=== PATIENT | female | born 1955 | race Caucasian/White ===

== ENCOUNTER 2021-03-17 06:46 | Inpatient (IN) | payer MEDICARE ==
[2021-03-10 11:58] LABS: BASOPHILS % (AUTO) 0.3 % (0-1); EOSINOPHILS # (AUTO) 0.1 X10'3 (0-0.9); EOSINOPHILS % (AUTO) 1.4 % (0-6); LYMPHOCYTES # (AUTO) 1.6 X10'3 (1.1-4.8); MEAN CORPUSCULAR HEMOGLOBIN 31.7 PG (27.0-31.0); MEAN CORPUSCULAR VOLUME 93.3 FL (78-98); MEAN PLATELET VOLUME 7.9 FL (7.4-10.4); MONOCYTES # (AUTO) 0.4 X10'3 (0-0.9); MONOCYTES % (AUTO) 7.9 % (2-12); NEUTROPHILS # (AUTO) 2.6 X10'3 (1.8-7.7); NEUTROPHILS % (AUTO) 56.4 % (42-75); PRE OP HEMATOCRIT 39.9 % (35.0-45.0); PRE OP HEMOGLOBIN 13.5 g/dL (12.0-16.0); PRE OP PLATELET COUNT 263 X10'3 (140-440); RED BLOOD COUNT 4.28 X10'6 (4.20-5.60); RED CELL DISTRIBUTION WIDTH 13.1 % (11.5-14.5)
[2021-03-10 12:12] LABS: ALBUMIN 3.6 G/DL (3.4-5.0); ALBUMIN/GLOBULIN RATIO 0.9 (1.1-1.5); ALKALINE PHOSPHATASE 75 IU/L (46-116); BLOOD UREA NITROGEN 19 MG/DL (7-18); BUN/CREATININE RATIO 25.7 (6.6-38.0); CALCIUM 9.2 MG/DL (8.5-10.1); CHLORIDE 107 MMOL/L (99-107); CREATININE 0.74 MG/DL (0.40-0.90); PRE OP ALT 23 U/L (30-65); PRE OP ANION GAP 7 (8-16); PRE OP AST 16 U/L (10-37); PRE OP BILIRUB, TOTAL 0.8 MG/DL (0.0-1.0); PRE OP GLUCOSE 101 MG/DL (70-104); PRE OP SODIUM 142 MMOL/L (135-145); TOTAL PROTEIN 7.4 G/DL (6.4-8.2); eGFR 78 ML/MIN
[~2021-03-17] VITALS: Ht 162.6 cm; Wt 140.5 kg
[2021-03-17] VITALS (20 sets, daily range): BP systolic 115–151; BP diastolic 66–83
[~2021-03-17 06:46] MED LIST: DET2T PO; ESTR10TA VG; ceFAZolin 1GM/D5W- ADD-VANTAGE 50 ML IV ONE; cefazolin/dext.iso 2gm/50ml 50 ML IV ONE; famotidine 20mg tablet PO ONE; ringers solution, lacted 1,000 ML IV SCH
[2021-03-17] MEDS ORDERED: LIDOcaine 1% 30ml preserv. free vial ONE (06:49)
[2021-03-17] MEDS ORDERED: BUPIVAcaine/PF 2.5 mg/ml (0.25%) 30ml vial ONE ×2 (06:49→09:45)
[2021-03-17] MEDS ORDERED: proCHLORperazine 10 MG/2 ml inj IV PRN (07:35)
[2021-03-17] MEDS ORDERED: hydrALAZINE 20mg/ml inj. IV PRN (07:35)
[2021-03-17] MEDS ORDERED: morphine 2 MG/ML inj. syringe IV PRN (07:35)
[2021-03-17] MEDS ORDERED: ringers solution, lacted 1,000 ML IV SCH (07:35)
[2021-03-17] MEDS ORDERED: morphine 4 MG/ML inj SYRINge IV PRN (07:35)
[2021-03-17] MEDS ORDERED: ondansetron/PF 4mg/2ml inj IV PRN ×5 (07:35→17:05)
[2021-03-17] MEDS ORDERED: labetalol 20mg/4ml (5mg/ml) syringe IV PRN (07:35)
[2021-03-17] MEDS ORDERED: meperidine/PF 25mg/ml syringe IV PRN ×2 (07:35)
[2021-03-17] MEDS ORDERED: acetaminophen 1,000mg/100ml IV 100 ML IV PRN (07:35)
[2021-03-17] MEDS ORDERED: midazolam 1 mg/ML 2ml injection ONE (09:36)
[2021-03-17] MEDS ORDERED: BUPIVACAINE liposomal/PF 13.3 MG/ML vial IM ONE (09:46)
[2021-03-17] MEDS ORDERED: fentaNYL /PF 50mcg/ml 5ml ampule ONE (09:58)
[2021-03-17] MEDS ORDERED: propofol inj 20 ML IV ONE (09:58)
[2021-03-17] MEDS ORDERED: rocuronium 10mg/ml inj IV ONE ×2 (09:58→11:57)
[2021-03-17] MEDS ORDERED: LIDOcaine 2% (20mg/ml) 5ml vial ONE (09:58)
[2021-03-17] MEDS ORDERED: ondansetron/PF 4mg/2ml inj ONE (10:04)
[2021-03-17] MEDS ORDERED: dexamethasone sod phosphate 4mg/ml inj. ONE (10:04)
[2021-03-17] MEDS ORDERED: ePHEDrine 50MG/ML INJ. ONE (10:33)
[2021-03-17] MEDS ORDERED: neostigmine methylsulfate 1 MG/ML 10ml vial ONE (11:43)
[2021-03-17] MEDS ORDERED: oxyCODONE/APAP 5-325mg tablet PO PRN ×2 (12:10)
[2021-03-17] MEDS ORDERED: sugammadex 200mg/2ml injection IV ONE (12:10)
--- NOTE | 2021-03-17 12:15 | NUR ---
PT AUSTYN DTO RECOVERY VIA [facility], ACCOMPANIED BY DR. ROCHA, ANESTHESIA-REPORT GIVEN, WAKING UP, VSS, DENIES PAIN, ABD BINDER AND LAP SITES X3 TO ABD-CDI, PIV 20G TO LEFT HAND, SCDS ON,
[2021-03-17] MEDS: meperidine/PF 25mg/ml syringe IV PRN ×2 (12:25→12:46)
[2021-03-17] MEDS ORDERED: PER5325T PO (12:27)
--- NOTE | 2021-03-17 13:30 | NUR ---
GIVEN DEMEROL X 2 TYLENOL IV AND 2 PERCOCET FOR PAIN- PT DOING BETTER, ABLE TO SIT UP AND TOLERATING FLUIDS, VSS
--- NOTE | 2021-03-17 14:30 | NUR ---
PT UP AND DRESSED, BUT A BIT DIZZY, SITTING IN THE W/C TOLERATING FLUIDS, NAUSEA BETTER, ENCOURAGING IS USE TO ASSIST WITH LOW SAT 90-92%, VSS, PAIN TOLERABLE AFTER PERCOCET. SPOKE WITH DTR, PT WANTS TO WAIT ABOUT 30 MIN MORE
--- NOTE | 2021-03-17 14:50 | NUR ---
RECEIVED PT FROM [facility], PT STATES SHE FEELS A LITTLE DIZZY, VSS. PT GIVEN CRACKERS AND ICE CHIPS, NO OTHER C/O AT THIS TIME. Addendum: 03/17/21 at 1507 by Sophia Lock RN Amended: Links added.
--- NOTE | 2021-03-17 14:50 | NUR ---
PT UNABLE TO STAND W/O BEING DIZZY, STILL SLIGHTLY NAUSEOUS, VSS, LAP SITES CDI, PIV 20G STILL IN PLACE, REPORT GIVEN TO PRADEEP ROMEO-PAS TO CONTINUE RECOVERY.
--- NOTE | 2021-03-17 16:20 | NUR ---
PT WANTS TO STAY THE NIGHT, DR JOSEPH NOTIFIED. PT BACK TO PACU, VSS. PT VOID X 1 W/STANDBY ASSIST WHILE IN MY CARE. Addendum: 03/17/21 at 1622 by Sophia Lock RN Amended: Links added.
--- NOTE | 2021-03-17 16:30 | NUR ---
PT RETRUNED TO PACU ROOM 4 WITH BELONGINGS VIA [employer]-WAITING FOR BED UPSTAIRS, VSS ON 2LTRS O2, PAIN4/10 TALKING ON THE PHONE WITH DTR CURRENTLY.
[2021-03-17] MEDS ORDERED: CADD PCA waste documentation MC PRN ×4 (17:05)
[2021-03-17] MEDS ORDERED: HYDROmorph./NS 0.2 mg/ml CADD 100 ML IV SCH ×4 (17:05)
[2021-03-17] MEDS ORDERED: naloxone 0.4 mg/ml inj IV PRN ×4 (17:05)
[2021-03-17] MEDS ORDERED: Potassium Cl inj 20 MEQ in ringers solution, lacted 1,000 ML IV SCH ×8 (17:05)
--- NOTE | 2021-03-17 19:35 | NUR ---
PT DOING WELL, ABLE TO MOVE WITH STANDBY ASSIST TO BATHROOM, PAIN TOLERABLE-DILAUDID CADD STARTED AT 0.2MG/10MIN-PT EDUCATED REGARDING USE, ALL QUESTIONS ANSWERED, PIV 20G TO LEFT HAND-LR AT 100ML/HR, LAP SITES X 3-CDI WITH ABD BINDER, VSS ON 2LTRS, ENCOURAGED TO USE CPAP FOR NEXT 24 HRS, REPORT CALLED TO OUSMANE LAKE ON PCU-ALL QUESTIONS ANSWERED, TAKEN WITH ALL BELONGINGS TO ROOM, BED LOW AND LOCKED, CALL LIGHT IN REACH, RN PRESENT TO RECEIVE
--- NOTE | 2021-03-17 19:50 | NUR ---
Received report from OUSMANE Green from OR, 65 yrs old female, s/p incisional hernia repair (9), 4 of them incarcerated loops of bowel. Hx: Sleep apnea, on 2L n/c, have own Bpap machine, on Dilaudid Q 10mins via PCPM, on clear liquids diet, have a 20G PIV left hand with LR @ 100 ml/hr. In stable condition.
--- NOTE | 2021-03-17 20:00 | NUR ---
Patient arrived to the unit via gurner with OUSMANE Green. Was transfer to hosp. bed, no acute distress noted.Pt AAOX4, Dilaudid 0.2mg Q10 mins in progress, also LR @ 100ml/hr. Denies any pain or discomfort. Patient's own Bpap at bedside. Water given as requested, tolerated well. Safety measures and comfort maintained. Will continue to monitor.
[2021-03-17] MEDS: oxybutynin 5mg tablet PO SCH (21:41)
[2021-03-17] MEDS: enoxaparin 40mg/0.4ml syringe SUBCUT SCH (21:42)
[2021-03-18] VITALS (12 sets, daily range): BP systolic 97–176; BP diastolic 61–95
--- NOTE | 2021-03-18 06:44 | NUR ---
Problems reprioritized. Patient report given, questions answered & plan of care reviewed with OUSMANE Monroe.
[2021-03-18] MEDS: oxybutynin 5mg tablet PO SCH ×2 (08:56→21:47)
--- NOTE | 2021-03-18 18:20 | NUR ---
Patient in room PCU 3014. I have received report from OUSMANE Monroe and had the opportunity to ask questions and assume patient care.
--- NOTE | 2021-03-18 18:42 | NUR ---
Dr Angeles was informed of STAT EKG result. No new orders at this time.
--- NOTE | 2021-03-18 18:55 | NUR ---
Dr Snyder visited the patient, new orders noted and carried out.
[2021-03-18] MEDS ORDERED: diltiazem 5mg/ml 5ml inj. IV ONE (19:10)
[2021-03-18 19:50] LABS: BASOPHILS % (AUTO) 0.4 % (0-1); EOSINOPHILS % (AUTO) 0 % (0-6); HEMATOCRIT 39.3 % (35.0-45.0); HEMOGLOBIN 13.5 g/dl (12.0-16.0); LYMPHOCYTES # (AUTO) 1.4 X10'3 (1.1-4.8); LYMPHOCYTES % (AUTO) 14.6 % (21-51); MEAN CORPUSCULAR HGB CONC 34.3 g/dL (33.0-36.5); MEAN CORPUSCULAR VOLUME 93.5 FL (78-98); MEAN PLATELET VOLUME 7.9 FL (7.4-10.4); MONOCYTES # (AUTO) 0.6 X10'3 (0-0.9); MONOCYTES % (AUTO) 5.9 % (2-12); NEUTROPHILS # (AUTO) 7.9 X10'3 (1.8-7.7); NEUTROPHILS % (AUTO) 79.1 % (42-75); PLATELET COUNT 249 X10'3 (140-440); RED CELL DISTRIBUTION WIDTH 13.5 % (11.5-14.5)
[2021-03-18 20:01] LABS: ALANINE AMINOTRANSFERASE 25 U/L (12-78); ALBUMIN 3.5 G/DL (3.4-5.0); ALBUMIN/GLOBULIN RATIO 0.9 (1.1-1.5); ALKALINE PHOSPHATASE 66 IU/L (46-116); ANION GAP 10 (8-16); ASPARTATE AMINO TRANSFERASE 22 U/L (10-37); BILIRUBIN,TOTAL 0.7 MG/DL (0.1-1.0); BLOOD UREA NITROGEN 11 MG/DL (7-18); BUN/CREATININE RATIO 12.2 (6.6-38.0); CALCIUM 8.8 MG/DL (8.5-10.1); CHLORIDE 109 MMOL/L (99-107); GLUCOSE 105 MG/DL (70-104); SODIUM 148 MMOL/L (135-145); TOTAL CARBON DIOXIDE 28.8 MMOL/L (24-32); TOTAL PROTEIN 7.3 G/DL (6.4-8.2); eGFR 62 ML/MIN
[2021-03-18 20:11] LABS: MAGNESIUM 2.1 MG/DL (1.5-2.4); PHOSPHORUS 3.3 MG/DL (2.3-4.5)
[2021-03-18] MEDS ORDERED: docusate sod 100mg capsule PO ONE (21:30)
[2021-03-18] MEDS: diltiazem-NS 100mg/100ml 100 ML IV SCH (21:47)
[2021-03-18] MEDS: enoxaparin 40mg/0.4ml syringe SUBCUT SCH (21:48)
[2021-03-18] MEDS: oxyCODONE/APAP 5-325mg tablet PO PRN (21:48)
--- NOTE | 2021-03-18 23:20 | NUR ---
Dr Lai visited patient.
[2021-03-19] VITALS (10 sets, daily range): BP systolic 106–128; BP diastolic 68–82
--- NOTE | 2021-03-19 06:35 | NUR ---
Problems reprioritized. Patient report given, questions answered & plan of care reviewed with OUSMANE Govea.
[2021-03-19] MEDS: docusate sod 100mg capsule PO SCH ×2 (07:09→19:26)
[2021-03-19] MEDS: oxybutynin 5mg tablet PO SCH ×2 (07:09→19:27)
[2021-03-19 09:03] LABS: BASOPHILS # (AUTO) 0.1 X10'3 (0-0.2); BASOPHILS % (AUTO) 0.8 % (0-1); EOSINOPHILS % (AUTO) 0.6 % (0-6); HEMATOCRIT 39.6 % (35.0-45.0); HEMOGLOBIN 13.6 g/dl (12.0-16.0); LYMPHOCYTES # (AUTO) 1.6 X10'3 (1.1-4.8); LYMPHOCYTES % (AUTO) 18.2 % (21-51); MEAN CORPUSCULAR HEMOGLOBIN 32.4 PG (27.0-31.0); MEAN CORPUSCULAR HGB CONC 34.3 g/dL (33.0-36.5); MEAN CORPUSCULAR VOLUME 94.3 FL (78-98); MEAN PLATELET VOLUME 8.2 FL (7.4-10.4); MONOCYTES # (AUTO) 0.7 X10'3 (0-0.9); MONOCYTES % (AUTO) 7.5 % (2-12); NEUTROPHILS # (AUTO) 6.4 X10'3 (1.8-7.7); NEUTROPHILS % (AUTO) 72.9 % (42-75); PLATELET COUNT 256 X10'3 (140-440); RED CELL DISTRIBUTION WIDTH 13.6 % (11.5-14.5); WHITE BLOOD COUNT 8.8 X10'3 (4.5-11.0)
[2021-03-19 09:22] LABS: ALANINE AMINOTRANSFERASE 25 U/L (12-78); ALBUMIN 3.3 G/DL (3.4-5.0); ALBUMIN/GLOBULIN RATIO 0.9 (1.1-1.5); ALKALINE PHOSPHATASE 64 IU/L (46-116); ANION GAP 10 (8-16); ASPARTATE AMINO TRANSFERASE 25 U/L (10-37); BLOOD UREA NITROGEN 13 MG/DL (7-18); BUN/CREATININE RATIO 14.1 (6.6-38.0); CALCIUM 8.3 MG/DL (8.5-10.1); CHLORIDE 109 MMOL/L (99-107); CREATININE 0.92 MG/DL (0.40-0.90); GLUCOSE 111 MG/DL (70-104); POTASSIUM 3.8 MMOL/L (3.5-5.1); SODIUM 147 MMOL/L (135-145); TOTAL CARBON DIOXIDE 28.1 MMOL/L (24-32); TOTAL PROTEIN 7.1 G/DL (6.4-8.2); eGFR 61 ML/MIN
[2021-03-19] MEDS ORDERED: furosemide 40mg/4ml inj IV ONE (12:00)
[2021-03-19] MEDS: diltiazem-NS 100mg/100ml 100 ML IV SCH (13:57)
[2021-03-19 14:09] LABS: CHOL/HDL RATIO 4.8 (0.00-4.99); CHOLESTEROL 206 MG/DL (0-200); HDL CHOLESTEROL 43 MG/DL (35-60); LDL CHOLESTEROL 142 MG/DL (50-100); TRIGLYCERIDES 125 MG/DL (20-135)
[2021-03-19] MEDS: diltiazem CD 180mg cap (once-daily) PO SCH (14:57)
[2021-03-19] MEDS ORDERED: CADD PCA waste documentation MC PRN (17:50)
--- NOTE | 2021-03-19 18:20 | NUR ---
Patient in room PCU 3014. I have received report from OUSMANE Monroe and had the opportunity to ask questions and assume patient care.
[2021-03-19] MEDS: enoxaparin 40mg/0.4ml syringe SUBCUT SCH (19:25)
[2021-03-19] MEDS: enoxaparin 100mg/ml syringe SUBCUT SCH (19:25)
[2021-03-19] MEDS: furosemide 40mg/4ml inj IV SCH (19:26)
[2021-03-19] MEDS: oxyCODONE/APAP 5-325mg tablet PO PRN (19:27)
[2021-03-19] MEDS ORDERED: enoxaparin 100mg/ml syringe SUBCUT SCH (20:00)
[2021-03-20 03:00] VITALS: BP 135/69
[2021-03-20 06:06] LABS: BASOPHILS % (AUTO) 0.3 % (0-1); EOSINOPHILS # (AUTO) 0.1 X10'3 (0-0.9); EOSINOPHILS % (AUTO) 1.2 % (0-6); HEMATOCRIT 39.6 % (35.0-45.0); HEMOGLOBIN 13.8 g/dl (12.0-16.0); LYMPHOCYTES # (AUTO) 2.1 X10'3 (1.1-4.8); LYMPHOCYTES % (AUTO) 28.5 % (21-51); MEAN CORPUSCULAR HEMOGLOBIN 32.5 PG (27.0-31.0); MEAN CORPUSCULAR HGB CONC 34.7 g/dL (33.0-36.5); MEAN CORPUSCULAR VOLUME 93.6 FL (78-98); MEAN PLATELET VOLUME 8.2 FL (7.4-10.4); MONOCYTES # (AUTO) 0.7 X10'3 (0-0.9); NEUTROPHILS # (AUTO) 4.4 X10'3 (1.8-7.7); PLATELET COUNT 237 X10'3 (140-440); RED BLOOD COUNT 4.23 X10'6 (4.20-5.60); RED CELL DISTRIBUTION WIDTH 13.6 % (11.5-14.5); WHITE BLOOD COUNT 7.3 X10'3 (4.5-11.0)
[2021-03-20 06:26] LABS: ALANINE AMINOTRANSFERASE 25 U/L (12-78); ALBUMIN 3.3 G/DL (3.4-5.0); ALBUMIN/GLOBULIN RATIO 0.8 (1.1-1.5); ALKALINE PHOSPHATASE 68 IU/L (46-116); ANION GAP 10 (8-16); ASPARTATE AMINO TRANSFERASE 23 U/L (10-37); BILIRUBIN,TOTAL 1.4 MG/DL (0.1-1.0); BLOOD UREA NITROGEN 12 MG/DL (7-18); BUN/CREATININE RATIO 14.1 (6.6-38.0); CALCIUM 8.6 MG/DL (8.5-10.1); CHLORIDE 107 MMOL/L (99-107); CREATININE 0.85 MG/DL (0.40-0.90); GLUCOSE 111 MG/DL (70-104); POTASSIUM 3.5 MMOL/L (3.5-5.1); SODIUM 145 MMOL/L (135-145); TOTAL CARBON DIOXIDE 27.7 MMOL/L (24-32); TOTAL PROTEIN 7.2 G/DL (6.4-8.2); eGFR 67 ML/MIN
--- NOTE | 2021-03-20 06:35 | NUR ---
Problems reprioritized. Patient report given, questions answered & plan of care reviewed with DeninseRN.
[2021-03-20 07:00] VITALS: BP 137/96
[2021-03-20] MEDS: diltiazem CD 180mg cap (once-daily) PO SCH (08:39)
[2021-03-20] MEDS: furosemide 40mg/4ml inj IV SCH (08:39)
[2021-03-20] MEDS: docusate sod 100mg capsule PO SCH (08:39)
[2021-03-20] MEDS: oxybutynin 5mg tablet PO SCH (08:39)
[2021-03-20] MEDS: enoxaparin 40mg/0.4ml syringe SUBCUT SCH (08:42)
[2021-03-20] MEDS: enoxaparin 100mg/ml syringe SUBCUT SCH (08:43)
[2021-03-20] MEDS ORDERED: APIX5TAB3 PO (10:58)
[2021-03-20] MEDS ORDERED: ATOR40TA PO (10:58)
[2021-03-20] MEDS ORDERED: DILT240C90 PO (10:58)
[2021-03-20 11:00] VITALS: BP 100/64
[2021-03-20 15:00] VITALS: BP 113/70
[2021-03-20] MEDS: oxyCODONE/APAP 5-325mg tablet PO PRN (15:37)
== END 2021-03-20 16:40 | disposition home or self-care (01) | DRG 336 ==
LOC: PAS 06:46 → UNDOADMIN 17:00 → PCU 3S 17:00
PROVIDERS: ADMIT Surgery; ATTEND Surgery
PROC: 0DNU4ZZ Release Omentum, Percutaneous Endoscopic Approach (ICD-10-PCS; 2021-03-17)
PROC: 0DNE4ZZ Release Large Intestine, Percutaneous Endoscopic Approach (ICD-10-PCS; 2021-03-17)
PROC: 0DN84ZZ Release Small Intestine, Percutaneous Endoscopic Approach (ICD-10-PCS; 2021-03-17)
PROC: 8E0W4CZ Robotic Assisted Procedure of Trunk Region, Percutaneous Endoscopic Approach (ICD-10-PCS; 2021-03-17)
PROC: 3E0T3BZ Introduction of Anesthetic Agent into Peripheral Nerves and Plexi, Percutaneous Approach (ICD-10-PCS; 2021-03-17)
PROC: 0WUF4JZ Supplement Abdominal Wall with Synthetic Substitute, Percutaneous Endoscopic Approach (ICD-10-PCS; principal; 2021-03-17 09:28)
PROC: 5A09357 Assistance with Respiratory Ventilation, Less than 24 Consecutive Hours, Continuous Positive Airway Pressure (ICD-10-PCS; 2021-03-18)
DX: K43.0 Incisional hernia with obstruction, without gangrene (principal); N17.9 Acute kidney failure, unspecified; Z68.43 Body mass index [BMI] 50.0-59.9, adult; E87.0 Hyperosmolality and hypernatremia; I48.91 Unspecified atrial fibrillation; E66.01 Morbid (severe) obesity due to excess calories; K66.0 Peritoneal adhesions (postprocedural) (postinfection); Z96.653 Presence of artificial knee joint, bilateral; G47.33 Obstructive sleep apnea (adult) (pediatric); Z90.49 Acquired absence of other specified parts of digestive tract; Z98.42 Cataract extraction status, left eye; Z98.41 Cataract extraction status, right eye
CPT/HCPCS: 36415; 71045; 80053; 80061; 82948; 83735; 83880; 84100; 84443; 84484; 85025; 85610; 93005; 93306; A4215; A4618; C1758; C1781; C9290; C9399; G0378; J0131; J0690; J1100; J1170; J1650; J1940; J2001; J2175; J2250; J2405; J2704; J2710; J3010; J3490; J7120; U0003; U0005

== ENCOUNTER 2022-02-28 21:58 | Emergency (ER) | payer MEDICARE ==
[~2022-02-28] VITALS: Ht 162.6 cm; Wt 143.2 kg
[~2022-02-28 21:58] MED LIST changes: +APIX5TAB3 PO; +DILT240C90 PO; +PER5325T PO; -ceFAZolin 1GM/D5W- ADD-VANTAGE 50 ML IV ONE; -cefazolin/dext.iso 2gm/50ml 50 ML IV ONE; -famotidine 20mg tablet PO ONE; -ringers solution, lacted 1,000 ML IV SCH
[2022-02-28 22:35] LABS: BASOPHILS % (AUTO) 0.4 % (0-1); EOSINOPHILS % (AUTO) 0.6 % (0-6); HEMATOCRIT 41.2 % (35.0-45.0); HEMOGLOBIN 14.2 g/dl (12.0-16.0); LYMPHOCYTES # (AUTO) 2.7 X10'3 (1.1-4.8); LYMPHOCYTES % (AUTO) 34.2 % (21-51); MEAN CORPUSCULAR HEMOGLOBIN 32.1 PG (27.0-31.0); MEAN CORPUSCULAR HGB CONC 34.3 g/dL (33.0-36.5); MEAN CORPUSCULAR VOLUME 93.5 FL (78-98); MEAN PLATELET VOLUME 7.3 FL (7.4-10.4); MONOCYTES # (AUTO) 0.7 X10'3 (0-0.9); MONOCYTES % (AUTO) 8.8 % (2-12); NEUTROPHILS # (AUTO) 4.3 X10'3 (1.8-7.7); PLATELET COUNT 228 X10'3 (140-440); RED BLOOD COUNT 4.41 X10'6 (4.20-5.60); WHITE BLOOD COUNT 7.8 X10'3 (4.5-11.0)
[2022-02-28 22:38] LABS: ALANINE AMINOTRANSFERASE 30 U/L (12-78); ALBUMIN 3.4 G/DL (3.4-5.0); ALBUMIN/GLOBULIN RATIO 0.9 (1.1-1.5); ALKALINE PHOSPHATASE 89 IU/L (46-116); ANION GAP 9 (8-16); ASPARTATE AMINO TRANSFERASE 18 U/L (10-37); BILIRUBIN,TOTAL 0.6 MG/DL (0.1-1.0); BLOOD UREA NITROGEN 19 MG/DL (7-18); BUN/CREATININE RATIO 23.5 (6.6-38.0); CALCIUM 9.2 MG/DL (8.5-10.1); CHLORIDE 108 MMOL/L (99-107); CREATININE 0.81 MG/DL (0.40-0.90); GLUCOSE 125 MG/DL (70-104); POTASSIUM 4.1 MMOL/L (3.5-5.1); SODIUM 142 MMOL/L (135-145); TOTAL CARBON DIOXIDE 24.7 MMOL/L (24-32); TOTAL PROTEIN 7.3 G/DL (6.4-8.2); eGFR 70 ML/MIN
[2022-02-28] MEDS ORDERED: diltiazem 5mg/ml 5ml inj. IV ONE ×3 (22:50→23:35)
--- NOTE | 2022-02-28 23:37 | NUR ---
>ED MD SPOKE WITH PHARMACY REGARDING THE AUTO CANCELLATION OF INITIAL ORDER OF 36MG DILTIAZEM BOLUS IVP ED MD DID BASED ON WT OF 143.18KG , ED MD STATE ADD 16MG TO MAKE IT 36MG ... PHARMACY COMPLIED
[2022-02-28] MEDS ORDERED: magnesium 2GM in 50ml NS 50 ML IV ONE (23:40)
[2022-03-01] MEDS ORDERED: digoxin 250mcg/ml 2ml ampule IV ONE (02:05)
--- NOTE | 2022-03-01 02:09 | NUR ---
> PATIENT RECEIVING MG IVRIDER , SEEN AND REXAMINED BY ED MD , PT WILL BE DISCHARGED AFTER DIGOXIN ... PT CURRENTLY ON CONTROLLED AFIB , HR =96-100 , STABLE BP
[2022-03-01 03:20] VITALS: BP 118/61
== END 2022-03-01 03:20 | disposition home or self-care (01) ==
LOC: ER 21:59
DX: R00.2 Palpitations (principal); R06.02 Shortness of breath; Z87.448 Personal history of other diseases of urinary system; Z79.899 Other long term (current) drug therapy
CPT/HCPCS: 36415; 71045; 80053; 83880; 84484; 85025; 93005; 96365; 96366; 96375; 96376; 99285; J1160; J3475; J3490; J7030

== ENCOUNTER 2023-11-10 12:40 | Inpatient (IN) | payer MEDICARE ==
[~2023-11-10] VITALS: Ht 162.6 cm; Wt 141.5 kg
[2023-11-10 13:27] LABS: ALANINE AMINOTRANSFERASE 26 U/L (12-78); ALBUMIN 3.4 G/DL (3.4-5.0); ALBUMIN/GLOBULIN RATIO 0.9 (1.1-1.5); ALKALINE PHOSPHATASE 94 IU/L (46-116); ANION GAP 11 (8-16); ASPARTATE AMINO TRANSFERASE 18 U/L (10-37); BILIRUBIN,TOTAL 1.2 MG/DL (0.1-1.0); BLOOD UREA NITROGEN 18 MG/DL (7-18); BUN/CREATININE RATIO 23.4 (10.0-20.0); CHLORIDE 107 MMOL/L (99-107); CREATININE 0.77 MG/DL (0.40-0.90); GLUCOSE 115 MG/DL (70-104); POTASSIUM 4.1 MMOL/L (3.5-5.1); SODIUM 142 MMOL/L (135-145); TOTAL CARBON DIOXIDE 24.5 MMOL/L (24-32); TOTAL PROTEIN 7.4 G/DL (6.4-8.2); eCRCL 60 ML/MIN; eGFR 74 ML/MIN
[2023-11-10 13:34] LABS: PRO BRAIN NATRIURETIC PEPTIDE 4975 PG/ML (0-125)
[2023-11-10 13:38] LABS: BASOPHILS % (AUTO) 0.2 % (0-1); EOSINOPHILS % (AUTO) 0.8 % (0-6); HEMATOCRIT 43.2 % (35.0-45.0); HEMOGLOBIN 14.3 g/dl (12.0-16.0); LYMPHOCYTES % (AUTO) 40.1 % (21-51); MEAN CORPUSCULAR HEMOGLOBIN 31.7 PG (27.0-31.0); MEAN CORPUSCULAR HGB CONC 33.2 g/dL (33.0-36.5); MEAN CORPUSCULAR VOLUME 95.7 FL (78-98); MEAN PLATELET VOLUME 8.3 FL (7.4-10.4); MONOCYTES # (AUTO) 0.5 X10'3 (0-0.9); MONOCYTES % (AUTO) 9.8 % (2-12); NEUTROPHILS # (AUTO) 2.5 X10'3 (1.8-7.7); NEUTROPHILS % (AUTO) 49.1 % (42-75); PLATELET COUNT 242 X10'3 (140-440); RED BLOOD COUNT 4.51 X10'6 (4.20-5.60); RED CELL DISTRIBUTION WIDTH 13.5 % (11.5-14.5); WHITE BLOOD COUNT 5.1 X10'3 (4.5-11.0)
[2023-11-10] MEDS ORDERED: iohexol 350MG/ML 100ml bottle IV ONE (17:29)
[2023-11-10] MEDS: amiodarone 150mg/dext, iso-os 100 ML IV ONE (17:51)
[2023-11-10] MEDS ORDERED: ondansetron/PF 4mg/2ml inj IV PRN (18:20)
[2023-11-10] MEDS ORDERED: acetaminophen 325mg tablet PO PRN ×2 (18:20→19:45)
[2023-11-10] MEDS ORDERED: mag hydrox/Alum hydrox/simeth 30ml oral suspension PO PRN (18:20)
[2023-11-10] MEDS ORDERED: magnesium hydroxide 30ml (MOM) UD suspension PO PRN (18:20)
[2023-11-10] MEDS ORDERED: ACET-1130 (19:16)
[2023-11-10] MEDS ORDERED: CYAN5000 SL (19:16)
[2023-11-10] MEDS ORDERED: SOTA80TA46 PO (19:16)
[2023-11-10] MEDS ORDERED: ACET-1025 PO (19:16)
[2023-11-10] MEDS ORDERED: ATOR40TA PO (19:16)
[2023-11-10] MEDS ORDERED: APIX5TAB3 PO (19:16)
[2023-11-10] MEDS: oxybutynin 5mg tablet PO SCH (20:08)
[2023-11-10] MEDS: docusate sod 100mg capsule PO SCH (20:08)
[2023-11-10] MEDS: sotalol HCl 40mg (1/2 tablet) PO SCH (20:09)
[2023-11-10] MEDS: apixaban 5mg tablet PO SCH (20:09)
[2023-11-10 22:55] VITALS: BP 135/89; PULSE 104; RESP 16; TEMP 97.1; O2SAT 93
[2023-11-11 02:00] VITALS: BP 114/68; PULSE 103; RESP 15; TEMP 98.2; O2SAT 91
[2023-11-11] MEDS: diltiazem 5mg/ml 5ml inj. IV PRN (02:48)
[2023-11-11 06:00] VITALS: BP 116/62; PULSE 113; RESP 20; TEMP 97.3; O2SAT 94
[2023-11-11 06:08] LABS: BASOPHILS % (AUTO) 0.6 % (0-1); EOSINOPHILS % (AUTO) 0.9 % (0-6); HEMATOCRIT 40.1 % (35.0-45.0); HEMOGLOBIN 13.5 g/dl (12.0-16.0); LYMPHOCYTES # (AUTO) 1.9 X10'3 (1.1-4.8); LYMPHOCYTES % (AUTO) 34.3 % (21-51); MEAN CORPUSCULAR HEMOGLOBIN 31.7 PG (27.0-31.0); MEAN CORPUSCULAR HGB CONC 33.7 g/dL (33.0-36.5); MEAN CORPUSCULAR VOLUME 93.9 FL (78-98); MONOCYTES # (AUTO) 0.5 X10'3 (0-0.9); MONOCYTES % (AUTO) 8.9 % (2-12); NEUTROPHILS # (AUTO) 3.1 X10'3 (1.8-7.7); NEUTROPHILS % (AUTO) 55.3 % (42-75); PLATELET COUNT 221 X10'3 (140-440); RED BLOOD COUNT 4.27 X10'6 (4.20-5.60); RED CELL DISTRIBUTION WIDTH 13.2 % (11.5-14.5); WHITE BLOOD COUNT 5.6 X10'3 (4.5-11.0)
[2023-11-11 06:43] LABS: ALBUMIN 3.1 G/DL (3.4-5.0); ANION GAP 9 (8-16); BLOOD UREA NITROGEN 13 MG/DL (7-18); BUN/CREATININE RATIO 17.8 (10.0-20.0); CHLORIDE 109 MMOL/L (99-107); CREATININE 0.73 MG/DL (0.40-0.90); GLUCOSE 107 MG/DL (70-104); POTASSIUM 3.8 MMOL/L (3.5-5.1); SODIUM 144 MMOL/L (135-145); TOTAL CARBON DIOXIDE 26.1 MMOL/L (24-32); eCRCL 63 ML/MIN; eGFR 79 ML/MIN
[2023-11-11 08:00] VITALS: RESP 20
[2023-11-11] MEDS: ESTRADIOL VG SCH (08:00)
[2023-11-11] MEDS ORDERED: enoxaparin 40mg/0.4ml syringe SUBCUT SCH (08:00)
[2023-11-11] MEDS: furosemide 40mg/4ml inj IV ONE (08:11)
[2023-11-11] MEDS: cyanocobalamin 500mcg tablet PO SCH (08:11)
[2023-11-11] MEDS: atorvastatin 20mg tablet PO SCH (08:12)
[2023-11-11] MEDS: azithromycin/NS 500mg/250ml 250 ML IV SCH (08:13)
[2023-11-11] MEDS: CefTRIAXone/D5W-Rocephin 1gm 50 ML IV SCH (08:13)
[2023-11-11] MEDS: diltiazem 30mg tablet PO SCH (09:11)
[2023-11-11 15:00] VITALS: BP 115/65; PULSE 112; RESP 24; TEMP 98.3; O2SAT 93
[2023-11-11 19:48] VITALS: RESP 18; O2SAT 95
[2023-11-11 22:00] VITALS: BP 104/62; PULSE 107; RESP 18; TEMP 98.3; O2SAT 94
[2023-11-12] VITALS (9 sets, daily range): BP systolic 98–120; BP diastolic 62–79; PULSE 72–105; RESP 15–26; TEMP 97.5–98.3; O2SAT 93–94
[2023-11-12 06:30] LABS: BASOPHILS % (AUTO) 0.5 % (0-1); EOSINOPHILS # (AUTO) 0.1 X10'3 (0-0.9); EOSINOPHILS % (AUTO) 1.3 % (0-6); HEMATOCRIT 40.7 % (35.0-45.0); HEMOGLOBIN 13.5 g/dl (12.0-16.0); LYMPHOCYTES # (AUTO) 1.9 X10'3 (1.1-4.8); LYMPHOCYTES % (AUTO) 40.6 % (21-51); MEAN CORPUSCULAR HEMOGLOBIN 31.1 PG (27.0-31.0); MEAN CORPUSCULAR HGB CONC 33.1 g/dL (33.0-36.5); MEAN CORPUSCULAR VOLUME 94.2 FL (78-98); MONOCYTES # (AUTO) 0.5 X10'3 (0-0.9); MONOCYTES % (AUTO) 10.3 % (2-12); NEUTROPHILS # (AUTO) 2.2 X10'3 (1.8-7.7); NEUTROPHILS % (AUTO) 47.3 % (42-75); PLATELET COUNT 230 X10'3 (140-440); RED BLOOD COUNT 4.32 X10'6 (4.20-5.60); RED CELL DISTRIBUTION WIDTH 13.1 % (11.5-14.5); WHITE BLOOD COUNT 4.7 X10'3 (4.5-11.0)
[2023-11-12 06:46] LABS: ANION GAP 8 (8-16); BLOOD UREA NITROGEN 15 MG/DL (7-18); CALCIUM 8.7 MG/DL (8.5-10.1); CHLORIDE 107 MMOL/L (99-107); CREATININE 0.88 MG/DL (0.40-0.90); GLUCOSE 103 MG/DL (70-104); POTASSIUM 3.7 MMOL/L (3.5-5.1); SODIUM 144 MMOL/L (135-145); TOTAL CARBON DIOXIDE 28.8 MMOL/L (24-32); eCRCL 52 ML/MIN; eGFR 64 ML/MIN
[2023-11-12] MEDS: furosemide 40mg/4ml inj IV SCH (13:07)
[2023-11-12] MEDS ORDERED: ondansetron 4mg rapidly disintigrating tab PO PRN (14:14)
[2023-11-12] MEDS: sotalol 80mg tablet PO SCH (21:10)
[2023-11-13] VITALS (7 sets, daily range): BP systolic 92–115; BP diastolic 47–75; PULSE 69–100; RESP 16–22; TEMP 97.3–98.1; O2SAT 92–96
[2023-11-13 06:05] LABS: BASOPHILS % (AUTO) 0.6 % (0-1); EOSINOPHILS # (AUTO) 0.1 X10'3 (0-0.9); EOSINOPHILS % (AUTO) 1.7 % (0-6); HEMOGLOBIN 13.7 g/dl (12.0-16.0); LYMPHOCYTES # (AUTO) 1.9 X10'3 (1.1-4.8); LYMPHOCYTES % (AUTO) 43.3 % (21-51); MEAN CORPUSCULAR HEMOGLOBIN 31.8 PG (27.0-31.0); MEAN CORPUSCULAR HGB CONC 33.4 g/dL (33.0-36.5); MEAN CORPUSCULAR VOLUME 95.1 FL (78-98); MEAN PLATELET VOLUME 8.1 FL (7.4-10.4); MONOCYTES # (AUTO) 0.5 X10'3 (0-0.9); MONOCYTES % (AUTO) 11.3 % (2-12); NEUTROPHILS # (AUTO) 1.9 X10'3 (1.8-7.7); NEUTROPHILS % (AUTO) 43.1 % (42-75); PLATELET COUNT 237 X10'3 (140-440); RED BLOOD COUNT 4.31 X10'6 (4.20-5.60); RED CELL DISTRIBUTION WIDTH 13.2 % (11.5-14.5); WHITE BLOOD COUNT 4.4 X10'3 (4.5-11.0)
[2023-11-13 06:08] LABS: ANION GAP 6 (8-16); BLOOD UREA NITROGEN 19 MG/DL (7-18); BUN/CREATININE RATIO 20.2 (10.0-20.0); CALCIUM 8.8 MG/DL (8.5-10.1); CHLORIDE 107 MMOL/L (99-107); CREATININE 0.94 MG/DL (0.40-0.90); GLUCOSE 108 MG/DL (70-104); POTASSIUM 3.6 MMOL/L (3.5-5.1); SODIUM 142 MMOL/L (135-145); TOTAL CARBON DIOXIDE 28.9 MMOL/L (24-32); eCRCL 49 ML/MIN; eGFR 59 ML/MIN
[2023-11-13] MEDS: furosemide 40mg tablet PO SCH (08:00)
[2023-11-13] MEDS: diltiazem 30mg tablet PO SCH (13:20)
[2023-11-14 02:00] VITALS: BP 93/53; PULSE 88; RESP 18; TEMP 97.6; O2SAT 94
[2023-11-14 06:00] VITALS: BP 112/74; PULSE 80; RESP 14; TEMP 97.9; O2SAT 94
[2023-11-14 06:00] LABS: ALBUMIN 2.9 G/DL (3.4-5.0); ANION GAP 7 (8-16); BLOOD UREA NITROGEN 17 MG/DL (7-18); BUN/CREATININE RATIO 23.3 (10.0-20.0); CALCIUM 8.6 MG/DL (8.5-10.1); CHLORIDE 107 MMOL/L (99-107); CREATININE 0.73 MG/DL (0.40-0.90); GLUCOSE 96 MG/DL (70-104); POTASSIUM 3.8 MMOL/L (3.5-5.1); SODIUM 142 MMOL/L (135-145); TOTAL CARBON DIOXIDE 27.8 MMOL/L (24-32); eCRCL 63 ML/MIN; eGFR 79 ML/MIN
[2023-11-14 06:01] LABS: BASOPHILS % (AUTO) 0.4 % (0-1); EOSINOPHILS # (AUTO) 0.1 X10'3 (0-0.9); EOSINOPHILS % (AUTO) 1.4 % (0-6); HEMATOCRIT 40.8 % (35.0-45.0); HEMOGLOBIN 13.9 g/dl (12.0-16.0); LYMPHOCYTES # (AUTO) 1.9 X10'3 (1.1-4.8); LYMPHOCYTES % (AUTO) 43.7 % (21-51); MEAN CORPUSCULAR VOLUME 93.9 FL (78-98); MONOCYTES # (AUTO) 0.4 X10'3 (0-0.9); MONOCYTES % (AUTO) 9.4 % (2-12); NEUTROPHILS % (AUTO) 45.1 % (42-75); PLATELET COUNT 228 X10'3 (140-440); RED BLOOD COUNT 4.34 X10'6 (4.20-5.60); RED CELL DISTRIBUTION WIDTH 13.4 % (11.5-14.5); WHITE BLOOD COUNT 4.4 X10'3 (4.5-11.0)
[2023-11-14 08:00] VITALS: BP_SYST 120
[2023-11-14] MEDS: furosemide 20MG tablet PO SCH (08:57)
[2023-11-14] MEDS: diltiazem CD 180mg cap (once-daily) PO ONE (10:12)
[2023-11-14 11:00] VITALS: BP 118/65; PULSE 62; RESP 13; TEMP 97.7; O2SAT 93
[2023-11-14] MEDS ORDERED: FURO20TA4 PO (13:33)
[2023-11-14] MEDS ORDERED: CARCD120C PO (13:33)
[2023-11-14 14:00] VITALS: BP 111/63; PULSE 62
== END 2023-11-14 16:44 | disposition home or self-care (01) | DRG 291 ==
LOC: ER 12:41 → ED HOLD 18:18 → PCU 3S 22:55
PROVIDERS: ADMIT Internal Medicine; ATTEND Internal Medicine
PROC: B32T1ZZ Computerized Tomography (CT Scan) of Left Pulmonary Artery using Low Osmolar Contrast (ICD-10-PCS; principal; 2023-11-10)
PROC: B3201ZZ Computerized Tomography (CT Scan) of Thoracic Aorta using Low Osmolar Contrast (ICD-10-PCS; 2023-11-10)
PROC: B32S1ZZ Computerized Tomography (CT Scan) of Right Pulmonary Artery using Low Osmolar Contrast (ICD-10-PCS; 2023-11-10)
PROC: 5A09357 Assistance with Respiratory Ventilation, Less than 24 Consecutive Hours, Continuous Positive Airway Pressure (ICD-10-PCS; 2023-11-13)
DX: I11.0 Hypertensive heart disease with heart failure (principal); I50.43 Acute on chronic combined systolic (congestive) and diastolic (congestive) heart failure; Z68.43 Body mass index [BMI] 50.0-59.9, adult; E66.01 Morbid (severe) obesity due to excess calories; G47.33 Obstructive sleep apnea (adult) (pediatric); I48.0 Paroxysmal atrial fibrillation; Z96.653 Presence of artificial knee joint, bilateral; E78.5 Hyperlipidemia, unspecified; Z79.01 Long term (current) use of anticoagulants; Z79.899 Other long term (current) drug therapy; I27.81 Cor pulmonale (chronic)
CPT/HCPCS: 36415; 71045; 71275; 80048; 80053; 83880; 84484; 85025; 87081; 93005; 93306; 96374; 99285; G0378; J0282; J0456; J0696; J1940; J3490; J7040; Q9967

== ENCOUNTER 2024-12-14 09:03 | Emergency (ER) | payer MEDICARE, OTHER ==
[~2024-12-14] VITALS: Ht 162.6 cm; Wt 154.6 kg
[~2024-12-14 09:03] MED LIST changes: +ACET-1025 PO; +ATOR40TA PO; +CARCD120C PO; +CYAN5000 SL; -DILT240C90 PO; +FURO20TA4 PO; -PER5325T PO; +SOTA80TA46 PO
--- NOTE | 2024-12-14 09:25 | ELECTROCARDIOGRAPH REPORT ---
[facility] Test Date: 2024-12-14 Test Time: 09:23:08 Pat Name: VITOR MORSE Department: EMERGENCY ROOM Patient ID: [id number] Room: Gender: F Rn Supplemental: ARCHANA : 1955 Requested By: SHARDA ROCK Order Number: [id number] Reading MD: Dr. Roly Laura Measurements Intervals [place] Rate: 68 P: 31 UT: 164 QRS: 13 QRSD: 86 T: 52 QT: 400 QTc: 426 Interpretive Statements Sinus rhythm Abnormal R-wave progression, late transition Borderline T abnormalities, anterior leads Electronically Signed On 12-14-2024 19:43:[address] Roly Laura Please click the below link to view image of tracing.
--- NOTE | 2024-12-14 09:31 | Physician Documentation ---
History of Present Illness ~ Chief Complaint: Shortness of Breath Stated Complaint: AFIB Time Seen by MD: 11:34 OK to notify your PCP?: Yes Source: patient Mode of Arrival: POV Exam Limitations: no limitations HPI 69-year-old female presents for shortness of breath ambulation, palpitations and possible AFib. She reports that when she went to bed last night she felt normal but woke up at 4:00 a.m. and felt like her heart was racing. She does have a history of atrial fibrillation and this feels similar to other episodes when she was in AFib. She took an extra dose of sotalol last night before going to bed. She states her heart rate was the 120s to 130s according to her pulse oximeter this morning, so she is took another dose of sotalol. She states that she is feeling slightly better at this point. She does take Eliquis. She has no chest pain, nausea or vomiting. Medication Reconciliation Allergies: Coded Allergies: No Known Allergies (Unverified , 02/11/16) Scheduled Apixaban (Eliquis), 1 TAB PO Q12H, (Reported) Atorvastatin Calcium* (Lipitor*), 1 TAB PO DAILY, (Reported) Cyanocobalamin (Vitamin B-12) (Vitamin B-12), 1 TAB SL DAILY, (Reported) Diltiazem HCl (Dilt-Xr), 1 CAP PO DAILY Estradiol (Vagifem), 1 TAB VG 2XWEEK, (Reported) Furosemide (Furosemide), 20 MG PO DAILY Sotalol HCl (Sotalol), 0.5 TAB PO Q12H, (Reported) Tolterodine Tartrate* (Detrol*), 0.5 TAB PO BID, (Reported) Scheduled PRN Acetaminophen (Tylenol Extra Strength), 1 TAB PO DAILY PRN for pain or fever, (Reported) Past Medical History Past Medical History: Atrial Fibrillation, Sleep Apnea, Acute Kidney Injury, Hernia Past Surgical History: noncontributory Alcohol Use: None Drug Use: none Review of Systems All Other Systems at this time: Reviewed and Negative Physical Exam Vital Signs: RN Vital Signs have been reviewed: Yes, Temperature: 97.7, Source: Oral, Heart Rate: 63, Respiratory Rate: 20, BP: 136/95, Pulse Oximetry: 95, Weight: 154.550 Oxygen Flow Rate: 0 Pulse Oximetry Reflects: adequate oxygenation Physical Exam General: Alert, no apparent distress. HEENT: PERRL, EOMI, no injection, moist mucous membranes. Neck: Full range of motion. Respiratory: Lungs clear, no respiratory distress. Chest: No accessory muscle use. Cardiovascular: Regular rate and rhythm, no murmurs. Gastrointestinal: Soft, nontender, nondistended. Bowels sounds present. Extremities: Normal range of motion, no deformity. Neurologic: Oriented x4. Psychiatric: Normal mood and affect. Skin: Normal color, warm and dry. No edema, no ecchymosis. Progress Results/Orders Results/Orders Vital Signs 12/14/24 12/14/24 12/14/24 09:17 10:26 10:34 Temp 97.7 97.7 Pulse 63 78 Resp 20 24 20 B/P (MAP) 136/95 114/64 (81) Pulse Ox 95 98 O2 Flow Rate 0 0 Laboratory Tests Test 12/14/24 09:54 12/14/24 11:04 12/14/24 12:19 White Blood Count 3.7 L Red Blood Count 4.39 Hemoglobin 14.0 Hematocrit 41.2 Mean Corpuscular Volume 93.9 Mean Corpuscular Hemoglobin 32.0 H Mean Corpuscular Hemoglobin Concent 34.1 Red Cell Distribution Width 13.4 Platelet Count 230 Mean Platelet Volume 8.2 Neutrophils (%) (Auto) 50.2 Lymphocytes (%) (Auto) 38.3 Monocytes (%) (Auto) 10.1 Eosinophils (%) (Auto) 0.7 Basophils (%) (Auto) 0.7 Neutrophils # (Auto) 1.9 Lymphocytes # (Auto) 1.4 Monocytes # (Auto) 0.4 Eosinophils # (Auto) 0.0 Basophils # (Auto) 0.0 CBC Comment Sodium Level 138 Potassium Level 3.9 Chloride Level 103 Carbon Dioxide Level 26.9 Anion Gap 8 Blood Urea Nitrogen 14 Creatinine 0.79 Estimated GFR/1.73 m2 72 BUN/Creatinine Ratio 17.7 Glucose Level 119 H Calcium Level 8.8 Troponin I High Sensitivity 16 17 Pro-B-Type Natriuretic Peptide 3038 H Albumin 3.4 Chemistry Comments Troponin I High Sens Percent Delta 6 Troponin I Hi Sens Absolute Change 1 EKG/XRAY/CT/US/VASC/MRI EKG : Additional Comment Electrocardiogram: as interpreted by me; normal sinus rhythm, no axis deviation, no acute ischemia, normal intervals, no pre-excitation pattern. Chest X-Ray : Additional Comments Chest x-ray: as interpreted by me; no large effusion, no large infiltrate, normal mediastinum. Heart Score: Heart Score Response (Comments) Value History Slightly Suspicious 0 EKG Normal 0 Age >65 2 Risk Factors 1 or 2 risk factors 1 Troponin Normal limit 0 Total 3 Medical Decision Making Additional info obtained from: old records Findings Megan had an episode of shortness of breath and palpitations earlier this morning. She took sotalol which this episode seems to have resolved with her arrival. She was able to ambulate to the restroom without any shortness of breath. She has not had any episodes of palpitations while in the department. She denies any chest pain at this time. Using shared decision-making with the patient, she is opting to be discharged home and follow up with her environmental aide on an outpatient basis. She has not been in AFib at all in the department and her vital signs have been stable. Her chest x-ray does not show any pulmonary edema. And her ECG was normal. Her heart score is 3 but her proBNP is elevated. The rest of her labs are unremarkable and her troponins are negative. She states that that has been elevated before but she has no new lower leg edema and is currently taking Lasix and other CHF medications as prescribed. Offered admission in the hospital for CHF exacerbation, however she declined at this time. She will be discharged home with strict instructions to return for any new or worsening symptoms. She agrees with this plan. Heart Score: 3 Differential Dx:Considerations: Include: anxiety, asthma, COPD, pneumonia, pneumothorax, respiratory failure Departure Disposition: 01 HOME / SELF CARE / HOMELESS Impression: Primary Impression: Dyspnea on exertion Condition: Stable Discharge Instructions: Heart Failure, Diagnosis, [id number] Referrals: NO PRIMARY CARE PROVIDER (PCP) Education Educated: Patient Educated regarding: diagnosis, treatment, prognosis, need for follow up Additional Comment Medical Screen Exam This patient recieved a medical screening examination. After reviewing the individual's medical complaints with presenting symptoms and performing an appropriate physical examination, it was determined that no immediate life- threatening emergency medical condition is present. This individual is also not a women having contractions. Signature Scribe Signature: . Attestation: Scribed for Julienne [employer] by Julienne Horvath NP . 12/14/24 12:37 Parts of this note were created using [employer] voice recognition software program. While efforts were made to correct any mistakes made by this voice recognition software program, nonsensical phrases may remain in this note. In addition, there may be errors and syntax, grammar, content and spelling. JULIENNE [employer] D[employer]LLER Dec 14, 2024 09:31
[2024-12-14 10:13] LABS: MEAN PLATELET VOLUME 8.2 FL (7.4-10.4); RED CELL DISTRIBUTION WIDTH 13.4 % (11.5-14.5)
[2024-12-14 10:30] LABS: CREATININE 0.79 MG/DL (0.40-0.90); PRO BRAIN NATRIURETIC PEPTIDE 3038 PG/ML (0-125); TOTAL CARBON DIOXIDE 26.9 MMOL/L (24-32); eCRCL 56 ML/MIN; eGFR 72 ML/MIN
--- NOTE | 2024-12-14 10:39 | RADIOLOGY REPORT ---
CHEST RADIOGRAPH Indication: CP Technique: Single frontal view of the chest was obtained Comparison: Chest radiograph DOS: 11/10/23 FINDINGS: Lines and Tubes: None Lungs: No focal consolidation. Pleura: No effusion. No pneumothorax. Cardiomediastinal contours: Unremarkable Bones: No acute osseous abnormality. IMPRESSION: 1. No acute cardiopulmonary disease.
[2024-12-14 12:44] VITALS: BP 117/71; PULSE 56; RESP 16; TEMP 98; O2SAT 94
== END 2024-12-14 12:48 | disposition home or self-care (01) ==
LOC: ER 09:04
DX: R06.02 Shortness of breath (principal); I48.91 Unspecified atrial fibrillation; G47.30 Sleep apnea, unspecified; Z79.899 Other long term (current) drug therapy
CPT/HCPCS: 36415; 71045; 80048; 83880; 84484; 85025; 93005; 99285